=== PATIENT | female | born 1965 | race Caucasian/White ===

== ENCOUNTER 2021-05-24 17:57 | Inpatient (IN) | payer MEDICAID, SELFPAY ==
[~2021-05-24] VITALS: Ht 165.1 cm; Wt 74.8 kg
[2021-05-24 18:06] VITALS: BP 194/125
--- NOTE | 2021-05-24 18:07 | NUR ---
PT AMBULATED TO BED, STEADY GAIT
--- NOTE | 2021-05-24 18:20 | NUR ---
56 Y/O F AMBULATED TO BED 2, C/O HIGH BLOOD PRESSURE STARTED TODAY. PT STATES FEELS HEARTBURN. DENIES ANY PAIN. TOOK BP AT HOME 210/133. MEDHX: HTN, HLD NKA HOME MEDS: LISINOPRIL, ATORVASTATIN
[2021-05-24] MEDS ORDERED: lisinopriL 20 MG TAB PO ONE (19:00)
[2021-05-24] MEDS ORDERED: DICYCLOMINE HCL LIQUID 20 MG, ALUMINUM HYD/MAG/SIMETHICONE 30 ML, LIDOCAINE VISCOUS 2% ... PO ONE ×3 (19:00)
[2021-05-24] MEDS ORDERED: ALUMINUM HYD/MAG/SIMETHICONE 30 ML UDC ONE (19:26)
[2021-05-24] MEDS ORDERED: DICYCLOMINE HCL LIQUID 10 MG/5 ML UDC ONE (19:27)
--- NOTE | 2021-05-24 19:30 | NUR ---
LAB AT BEDSIDE
--- NOTE | 2021-05-24 19:41 | NUR ---
Pt report given to NICOLE Laws. Transfer of care at this time.
[2021-05-24 19:43] LABS: BASOPHILS % (AUTO) 0.7 % (0.0-2.0); EOSINOPHILS # (AUTO) 0.1 K/uL (0-0.4); EOSINOPHILS % (AUTO) 1.6 % (0.0-4.0); HEMATOCRIT 35.6 % (36-48); HEMOGLOBIN 12.5 g/dL (12.0-16.0); LYMPHOCYTES # (AUTO) 1.1 K/uL (2.5-16.5); LYMPHOCYTES % (AUTO) 25.2 % (20.5-51.1); MEAN CORPUSCULAR HEMOGLOBIN 34 pg (27-31); MEAN CORPUSCULAR HGB CONC 35 g/dL (33-37); MEAN CORPUSCULAR VOLUME 96.7 fL (80-94); MONOCYTES # (AUTO) 0.5 K/uL (0.8-1.0); MONOCYTES % (AUTO) 10.3 % (1.7-9.3); NEUTROPHILS # (AUTO) 2.8 K/uL (1.8-7.7); NEUTROPHILS % (AUTO) 62.2 % (42.2-75.2); PLATELET COUNT (AUTO) 195 K/uL (140-450); RED BLOOD CELL COUNT(AUTO) 3.68 MIL/uL (4.20-5.40); RED CELL DISTRIBUTION WIDTH 13.9 % (11.6-13.7); WHITE BLOOD COUNT (AUTO) 4.4 K/uL (4.8-10.8)
[2021-05-24 20:09] LABS: ALBUMIN 3.9 g/dL (3.4-5.0); ANION GAP 12.8 (8-16); CARBON DIOXIDE 27.9 mmol/L (21-32); CREATININE 0.6 mg/dL (0.6-1.3); POTASSIUM 3.7 mmol/L (3.5-5.1); TOTAL BILIRUBIN 0.3 mg/dL (0.0-1.0)
[2021-05-24] MEDS ORDERED: CLONIDINE HYDROCHLORIDE 0.1 MG TAB PO ONE (20:15)
--- NOTE | 2021-05-24 20:20 | NUR ---
BP REMAINS HIGH, ADDITIONAL MED ORDERED
[2021-05-24] MEDS ORDERED: LORazepam 0.5 MG TAB PO ONE (21:35)
[2021-05-24] MEDS ORDERED: ASPIRIN 81 MG TAB.CHEW PO ONE (22:05)
[2021-05-24] MEDS ORDERED: LABETALOL 100 MG/20 ML VIAL IVP ONE ×2 (22:05→22:35)
[2021-05-24] MEDS ORDERED: LISI-486 PO (23:37)
[2021-05-24] MEDS ORDERED: ATOR20TA PO (23:37)
--- NOTE | 2021-05-25 00:20 | NUR ---
REPORT CALLED TO NICOLE AGUAYO
--- NOTE | 2021-05-25 00:30 | NUR ---
TO 105B VIA GURNEY ATTACHED TO [employer], ACCOMPANIED BY RN AND ERT
[2021-05-25 01:53] VITALS: BP 136/88
[2021-05-25 04:32] VITALS: BP 125/79
--- NOTE | 2021-05-25 06:51 | NUR ---
patient vitals are stable. she sleeps comfortable in her bed. pateint jesus was endorsed to the charge nurse for continuity of care
[2021-05-25] MEDS ORDERED: ACETAMINOPHEN 325 MG TAB PO PRN (07:25)
[2021-05-25] MEDS ORDERED: NACL 0.9% 1,000 ML IV SCH (07:25)
[2021-05-25] MEDS ORDERED: MAG SULF 2000 MG/WATER PREMIX 50 ML IV PRN (07:25)
[2021-05-25] MEDS ORDERED: MORPHINE SULFATE 2 MG/ML SYR IVP PRN (07:25)
[2021-05-25] MEDS ORDERED: ZOLPIDEM 5 MG TAB PO PRN (07:25)
[2021-05-25] MEDS ORDERED: LORazepam 2 MG/ML VIAL IM/IVP PRN (07:25)
[2021-05-25] MEDS ORDERED: POTASSIUM CHLORIDE 10 MEQ TABER PO PRN (07:25)
[2021-05-25] MEDS ORDERED: HYDROcodone/APAP 5/325 MG 1 TAB TAB PO PRN (07:25)
[2021-05-25] MEDS ORDERED: SODIUM PHOS / POTASSIUM PHOS 1 PKT PDR PO PRN (07:25)
[2021-05-25] MEDS ORDERED: DOCUSATE SODIUM 100 MG GELCAP PO PRN (07:25)
[2021-05-25] MEDS ORDERED: ONDANSETRON 4 MG/2 ML VIAL IVP PRN (07:25)
--- NOTE | 2021-05-25 07:30 | NUR ---
RECEIVED REPORT FROM [employer] SELLER. AOX4, NO SOB ON ROOM AIR, NO C/O PAIN. AMBULATORY. B/B CONTINENT. SKIN INTACT. WITH RAC IV RUNNING NS 100ML/HR. PLAN OF CARE DISCUSSED. CALL LIGHT WITHIN REACH WILL CONTINUE TO MONITOR
[2021-05-25 08:00] VITALS: BP 155/92
[2021-05-25 08:26] LABS: CHOL/HDL RATIO 4.3 (1-4.5); FREE T4 (FREE THYROXINE) 0.71 ng/dL (0.76-1.46); PHOSPHORUS 4.1 mg/dL (2.5-4.9); THYROID STIMULATING HORMONE 4.54 uIU/mL (0.34-3.74)
--- NOTE | 2021-05-25 08:39 | NUR ---
PATIENT HAS BEEN SCREENED AND CATEGORIZED MODERATE NUTRITION RISK. PATIENT WILL BE SEEN WITHIN 3-5 DAYS OF ADMISSION. / REFERRAL RECEIVED NOT APPLICABLE [address]
--- NOTE | 2021-05-25 09:00 | NUR ---
DUE MEDS GIVEN
[2021-05-25 09:07] LABS: PROTHROMBIN TIME 9.6 secs (10.8-13.4)
--- NOTE | 2021-05-25 11:20 | NUR ---
pt awake, resting in bed. no complaints at this time
[2021-05-25 12:00] VITALS: BP 152/93
--- NOTE | 2021-05-25 14:00 | NUR ---
SEEN AND EXAMINED BY DR MEYER, RECOMMENDATIONS NOTED
--- NOTE | 2021-05-25 15:57 | NUR ---
BP 170/90, NOTIFIED, ORDERS MADE AND CARRIED OUT Addendum: 05/25/21 at 1727 by Nathaniel Zhou RN NOTIFIED DR PEDRO
[2021-05-25] MEDS ORDERED: hydroCHLOROthiazide 25 MG TAB ONE (15:59)
[2021-05-25 16:00] VITALS: BP 170/96
[2021-05-25] MEDS: hydroCHLOROthiazide 25 MG TAB PO SCH (16:04)
--- NOTE | 2021-05-25 16:07 | NUR ---
UPDATED PT WITH POC, VERBALIZED UNDERSTANDING
--- NOTE | 2021-05-25 17:27 | NUR ---
PT RESTING IN BED, NO COMPLAINTS AT THIS TIME
[2021-05-25 20:00] VITALS: BP 160/112
--- NOTE | 2021-05-25 20:00 | NUR ---
PATIENT IS RESTING IN BED COMFORTABLY. ON ROOM AIR. NO COMPLAINTS OF PAIN. CALL LIGHT WITHIN REACH.
[2021-05-25] MEDS ORDERED: LABETALOL 100 MG/20 ML VIAL IV SCH (20:35)
--- NOTE | 2021-05-25 20:36 | NUR ---
BP-160/112 P-63 DR. PEDRO MADE AWARE WITH NEW ORDER, CARRIED OUT.
--- NOTE | 2021-05-25 22:55 | NUR ---
TYLENOL 650 MG GIVEN FOR MILD HEADACHE.
--- NOTE | 2021-05-25 22:57 | NUR ---
ATTENDED PATIENT NEEDS.
[2021-05-26] VITALS: BP 154/97
[2021-05-26 04:00] VITALS: BP 143/94
--- NOTE | 2021-05-26 07:20 | NUR ---
BEDSIDE REPORT GIVEN TO AM NURSE FOR CONTINUITY OF CARE. PT IS IN STABLE CONDITION.
--- NOTE | 2021-05-26 07:25 | NUR ---
RECEIVED PT FROM CYLINDER WORKER RN, PT IS ASLEEP AND LYING ON THE BED, RESPIRATION IS EVEN, VISIBLE CHEST RISE AND FALL, IV LINE ON THE RAC G. 20 ON SALINE LOCK, PT IS ON RA, NO SIGN OF DISTRESS NOTED AND WILL CONTINUE TO MONITOR PT.
[2021-05-26 07:35] LABS: ALBUMIN 3.8 g/dL (3.4-5.0); ANION GAP 12.3 (8-16); CARBON DIOXIDE 28.8 mmol/L (21-32); CREATININE 0.6 mg/dL (0.6-1.3); MAGNESIUM 2.2 mg/dL (1.8-2.4); POTASSIUM 4.1 mmol/L (3.5-5.1); TOTAL BILIRUBIN 0.7 mg/dL (0.0-1.0)
[2021-05-26 07:59] LABS: BASOPHILS % (AUTO) 0.4 % (0.0-2.0); EOSINOPHILS # (AUTO) 0.1 K/uL (0-0.4); HEMATOCRIT 34.7 % (36-48); HEMOGLOBIN 11.9 g/dL (12.0-16.0); LYMPHOCYTES % (AUTO) 33.1 % (20.5-51.1); MEAN CORPUSCULAR HEMOGLOBIN 33 pg (27-31); MEAN CORPUSCULAR HGB CONC 34 g/dL (33-37); MEAN CORPUSCULAR VOLUME 96.5 fL (80-94); MONOCYTES # (AUTO) 0.3 K/uL (0.8-1.0); NEUTROPHILS # (AUTO) 1.5 K/uL (1.8-7.7); NEUTROPHILS % (AUTO) 51.5 % (42.2-75.2); PLATELET COUNT (AUTO) 187 K/uL (140-450); WHITE BLOOD COUNT (AUTO) 2.9 K/uL (4.8-10.8)
[2021-05-26 08:00] VITALS: BP 139/69
[2021-05-26] MEDS: hydroCHLOROthiazide 25 MG TAB PO SCH (08:39)
--- NOTE | 2021-05-26 08:39 | NUR ---
PT WAS GIVEN THE SCHEDULED AM MEDICATIONS NOW, TOLERATED, PARAMETER CHECKED AND PT IS EATING HER BREAKFAST WELL.
[2021-05-26] MEDS ORDERED: HYDR25TA32 PO (08:40)
[2021-05-26] MEDS ORDERED: LISI20TA29 PO (08:40)
--- NOTE | 2021-05-26 08:47 | NUR ---
DR. PEDRO MADE A TELEPHONE ORDER NOW TO GIVE PT A LOZENGE PO FOR PT'S DRY, ITCHY THROAT. ACKNOWLEDGED AND WILL CARRY OUT ORDER.
[2021-05-26] MEDS ORDERED: BENZOCAINE/MENTHOL 1 LOZ MM PRN (08:50)
[2021-05-26] MEDS ORDERED: lisinopriL 20 MG TAB PO SCH (09:00)
[2021-05-26 11:00] VITALS: BP 145/59
--- NOTE | 2021-05-26 11:26 | NUR ---
DISCHARGED PT TO HOME ACCOMPANIED BY SON, DISCHARGED TEACHINGS AND INSTRUCTIONS GIVEN TO PT AND VERBALIZED UNDERSTANDING, IV LINE REMOVED AND PT IS STABLE FOR DISCHARGE.
== END 2021-05-26 11:26 | disposition home or self-care (01) | DRG 199 ==
LOC: MED 17:57 → MTU 23:29
PROVIDERS: ADMIT Family Medicine; ATTEND Family Medicine
DX: I16.0 Hypertensive urgency (principal); E78.5 Hyperlipidemia, unspecified; F17.210 Nicotine dependence, cigarettes, uncomplicated; Z20.822 Contact with and (suspected) exposure to COVID-19; I10 Essential (primary) hypertension; F41.9 Anxiety disorder, unspecified; R07.89 Other chest pain; R74.01 Elevation of levels of liver transaminase levels; I08.3 Combined rheumatic disorders of mitral, aortic and tricuspid valves; Z79.899 Other long term (current) drug therapy
CPT/HCPCS: 36415; 71045; 80053; 82150; 83036; 83690; 83735; 83880; 84100; 84439; 84443; 84484; 85025; 85610; 85730; 87081; 93005; 96374; 99285; J3490; Q0092

== ENCOUNTER 2023-11-20 12:20 | Emergency (ER) | payer MEDICAID ==
[~2023-11-20] VITALS: Ht 162.6 cm; Wt 74.8 kg
[~2023-11-20 12:20] MED LIST: ATOR20TA PO; HYDR25TA32 PO; LISI20TA29 PO
[2023-11-20 12:47] VITALS: BP 130/85; PULSE 83; RESP 19; TEMP 98.6; O2SAT 99
[2023-11-20] MEDS ORDERED: IBUP-2213 PO (14:48)
[2023-11-20] MEDS ORDERED: KETOROLAC 30 MG/ML VIAL ONE (14:54)
[2023-11-20] MEDS: KETOROLAC 30 MG/ML VIAL IM ONE (14:58)
== END 2023-11-20 15:15 | disposition home or self-care (01) ==
LOC: MED 12:20
DX: S62.112A Displaced fracture of triquetrum [cuneiform] bone, left wrist, initial encounter for closed fracture (principal); I10 Essential (primary) hypertension; Z79.1 Long term (current) use of non-steroidal anti-inflammatories (NSAID); Z79.899 Other long term (current) drug therapy; W01.0XXA Fall on same level from slipping, tripping and stumbling without subsequent striking against object, initial encounter; Y93.89 Activity, other specified; Y92.89 Other specified places as the place of occurrence of the external cause; Y99.8 Other external cause status
CPT/HCPCS: 29125; 73080; 73110; 96372; 99284; J1885